=== PATIENT | female | born 1950 | race Caucasian/White ===

== ENCOUNTER 2016-09-28 09:20 | Outpatient (RCR) | payer OTHER ==
--- OUTSIDE RECORDS SUMMARY | 2016-07-14 11:12 | XMS REPORT | Continuity of Care Document ---
Author Author [facility] Organization [facility] Address Unknown Phone Unavailable Care Team Providers Care Hardware Developer Name Role Phone Madi Wan PCP [phone] Source Comments Some departments are not documenting in the electronic medical record. If you do not see the information that you expected, contact Release of Information in the Health Information Management department at [phone] for further assistance in locating additional records.[facility] Active Allergies and Adverse Reactions No Known Allergies Current Medications Prescription Sig. Disp. Refills Start End Date Status Date escitalopram (LEXAPRO) 10 Take 10 mg by mouth at Active mg tablet bedtime daily. simvastatin (ZOCOR) 20 mg Take 20 mg by mouth at Active tablet bedtime daily. cyanocobalamin(+) Take 500 mcg by mouth Active (VITAMIN B-12) 500 mcg daily. tablet ascorbic acid (VITAMIN-C) Take 500 mg by mouth Active 500 mg tablet daily. cholecalciferol (VITAMIN Take 400 Units by mouth Active D-3) 400 unit Tab daily. vitamin E 400 unit Take 400 Units by mouth Active capsule daily. Myzwxhm-Hhprmtsig-Hlfm Take 1 Tab by mouth Active Tab daily. Polysorbate 80-Glycerin Apply 1-2 Drops to both Active (REFRESH DRY EYE THERAPY) eyes daily. 1-1 % Drop polyethylene glycol 3350 Take 17 g by mouth as Active (GLYCOLAX; MIRALAX) 17 Needed. gram/dose powder cyclobenzaprine Take 1 Tab by mouth three 30 Tab 0 02/01/20 Active (FLEXERIL) 5 mg tablet times daily as needed for 16 Muscle Cramps. docusate (COLACE) 100 mg Take 1 Cap by mouth twice 30 Cap 0 02/01/20 Active capsule daily as needed for 16 Constipation. Active Problems Problem Noted Date Pharyngoesophageal dysphagia 12/03/2015 Zenker's diverticulum 12/03/2015 Esophageal dysmotility 12/03/2015 Laryngopharyngeal reflux 12/03/2015 Neuropathy (HCC) 04/09/2014 Pelvic mass 06/06/2013 Fallopian tube cancer, carcinoma (HCC) 05/11/2013 Overview: Formatting of this note may be different from the original. 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 PRIOR THERAPY: Status post exp lap, tahbso, omentectomy, P and PALND on 06/06/2013. Final pathology: + left tube/ovary and + washings. Lab Results Component Value Date CA125 76* 06/26/2013 Lab Results Component Value Date CA125 17 08/21/2013 Completed 6 cycles of carboplatin/taxol chemotherapy at [facility] with Dr. Minerva Diaz on 10/19/2013. Lab Results Component Value Date CA125 13 11/23/2013 11/23/13 CT CHEST W/CONTRAST Component Value Range Impression Value: CT CHEST W/CONTRAST IMPRESSION: CHEST: 1. NO MEDIASTINAL ADENOPATHY. 2. 4 MILLIMETER LEFT LOWER LOBE PULMONARY NODULE LIKELY CALCIFIED GRANULOMA ARE SCAR. CT FOLLOWUP RECOMMENDED. ABDOMEN/PELVIS: 1. INTERVAL HYSTERECTOMY AND OOPHORECTOMY WELL OMENTECTOMY AND LYMPH NODE DISSECTION. 2. NO ABDOMINAL OR PELVIC METASTATIC DISEASE. Lab Results Component Value Date CA125 13 11/23/2013 Last Assessment & Plan: Current Clinical examination, from today 11/23/2013: She is asymptomatic for recurrent disease, her ROS, as described above, does not identify any symptoms that are persistent or concerning for disease. CA125 drawn and normal. She is without evidence of abdominal or pelvic recurrence based on examination in the office today. See above for more particulars. Remainder of examination is unremarkable and reinforces my opinion. Any significant findings are noted above. PLAN: RV in 4 months with CA125 Send disc on last scan. Saw Dr. Gupta in 10/2013 with a RV scheduled in 02/2014. Will see her after. Diverticulitis 05/11/2013 Depression 05/11/2013 Anxiety 05/11/2013 Cataract 05/11/2013 Periodontal disease 05/11/2013 Most Recent Encounters Date Type Specialty Providers Description 06/16/2016 Telephone Otolaryngology Eladio Acharya MD Results 06/10/2016 Surgery Ivy Corrigan MD MANOMETRY ESOPHAGEAL 06/08/2016 Telephone Melody Arteaga RN Pre-Procedure Instructions Social History Tobacco Use Types Packs/Day Years Used Date Never Smoker Smokeless Tobacco: Never Used Alcohol Use Drinks/Week oz/Week Comments No Last Filed Vital Signs Vital Sign Reading Time Taken Blood Pressure 126/83 04/07/2016 12:09 PM CDT Pulse 73 04/07/2016 12:09 PM CDT Temperature 36.7 C (98.1 F) 02/01/2016 8:02 AM CDT Respiratory Rate 18 04/03/2014 1:13 PM CDT Height 1.549 m (5' 1") 04/07/2016 12:09 PM CDT Weight 58.151 kg (128 lb 3.2 oz) 04/07/2016 12:09 PM CDT Body Mass Index 24.24 04/07/2016 12:09 PM CDT Oxygen Saturation 96% 02/01/2016 8:02 AM CDT Plan of Care Health Maintenance Due Date Last Done Comments Hepatitis C Screening 1950 Physical (Comprehensive) 1958 Exam Pertussis Vaccine 1962 Tetanus Vaccine 1968 Cervical Cancer Screening 1972 Breast Cancer Screening 1991 Colorectal Cancer 2001 Screening Shingles Vaccine 2011 Influenza Vaccine 05/21/2016 Procedures from Last 3 Months Procedure Name Priority Date/Time Associated Diagnosis Comments PROCEDURES-SCAN 06/15/2016 Results for this 5:30 PM CDT procedure are in the results section. MANOMETRY ESOPHAGEAL 06/10/2016 Pharyngoesophageal 12:00 PM CDT dysphagia Results from Last 3 Months PROCEDURES-SCAN (06/15/2016 5:30 PM) Narrative Ordered by an unspecified provider.
[~2016-09-28 09:20] MED LIST: CALCIUM SUPPLEMENT; ESCT10T PO; SIMV10TA3 PO; VIT1TABL86 PO; VIT1TABL93 PO; VITAMIN E; VITIMIN C
== END 2016-10-12 | disposition home or self-care (01) ==
LOC: ONC 09:20
PROVIDERS: ATTEND Internal Medicine Hematology & Oncology
DX: Z08 Encounter for follow-up examination after completed treatment for malignant neoplasm (principal); Z85.43 Personal history of malignant neoplasm of ovary; Z85.44 Personal history of malignant neoplasm of other female genital organs; R13.10 Dysphagia, unspecified; Z90.710 Acquired absence of both cervix and uterus; Z92.21 Personal history of antineoplastic chemotherapy; Z45.2 Encounter for adjustment and management of vascular access device
CPT/HCPCS: 36591; 96523; 99213

== ENCOUNTER 2017-01-26 10:50 | Outpatient (RCR) | payer OTHER ==
--- OUTSIDE RECORDS SUMMARY | 2016-11-03 11:11 | XMS REPORT | Continuity of Care Document ---
Author Author [facility] Organization [facility] Address Unknown Phone Unavailable Care Team Providers Care Library Technical Assistant Name Role Phone Madi Wan PCP [phone] Source Comments Some departments are not documenting in the electronic medical record. If you do not see the information that you expected, contact Release of Information in the Health Information Management department at [phone] for further assistance in locating additional records.[facility] Active Allergies and Adverse Reactions No [...] 400 Units by mouth Active capsule daily. Syhgzre-Nsblxhecd-Arig Take 1 Tab by mouth Active Tab [...] Completed 6 cycles of carboplatin/taxol chemotherapy at [facility] with Dr. Minerva Diaz on [...] Anxiety 05/11/2013 Cataract 05/11/2013 Periodontal disease 05/11/2013 Social History Tobacco Use Types Packs/Day Years [...] Exam Pertussis Vaccine 1962 Tetanus Vaccine 1968 Breast Cancer Screening 1991 Colorectal Cancer 2001 Screening Shingles Vaccine 2011 Influenza Vaccine 05/21/2016 Osteoporosis Screening 2016 Prevnar/Pneumovax (#1) 2016 Results from Last 3 Months Not on file
== END 2017-02-01 | disposition home or self-care (01) ==
LOC: ONC 10:50
PROVIDERS: ATTEND Internal Medicine Hematology & Oncology
DX: Z08 Encounter for follow-up examination after completed treatment for malignant neoplasm (principal); Z85.43 Personal history of malignant neoplasm of ovary; Z85.44 Personal history of malignant neoplasm of other female genital organs; R13.10 Dysphagia, unspecified; Z90.710 Acquired absence of both cervix and uterus; Z92.21 Personal history of antineoplastic chemotherapy; Z45.2 Encounter for adjustment and management of vascular access device
CPT/HCPCS: 96523

== ENCOUNTER 2017-03-09 10:12 | Outpatient (RCR) | payer MEDICARE, OTHER ==
[2017-03-09 11:13] LABS: BASOPHILS % (AUTO) 1 % (0-10); EOSINOPHILS # (AUTO) 0.1 10^3/uL (0.0-0.3); EOSINOPHILS % (AUTO) 1 % (0-10); LYMPHOCYTES # (AUTO) 2.3 X 10^3 (1.0-4.0); LYMPHOCYTES % (AUTO) 37 % (12-44); MEAN CORPUSCULAR HEMOGLOBIN 31 PG (25-34); MEAN CORPUSCULAR HGB CONC 34 G/DL (32-36); MEAN CORPUSCULAR VOLUME 92 FL (80-99); MEAN PLATELET VOLUME 9.4 FL (7.4-10.4); MONOCYTES # (AUTO) 0.7 X 10^3 (0.0-1.0); MONOCYTES % (AUTO) 11 % (0-12); NEUTROPHILS # (AUTO) 3.1 X 10^3 (1.8-7.8); NEUTROPHILS % (AUTO) 51 % (42-75); PLATELET COUNT 389 10^3/uL (130-400); RED CELL DISTRIBUTION WIDTH 13.5 % (10.0-14.5); WHITE BLOOD COUNT 6.2 10^3/uL (4.3-11.0)
[2017-03-09 11:28] LABS: ALANINE AMINOTRANSFERASE 8 U/L (0-55); ALBUMIN 4.3 GM/DL (3.2-4.5); ANION GAP 10 MMOL/L (5-14); ASPARTATE AMINO TRANSFERASE 16 U/L (5-34); BILIRUBIN,TOTAL 0.6 MG/DL (0.1-1.0); BLOOD UREA NITROGEN 11 MG/DL (7-18); BUN/CREATININE RATIO 16 (0-20); CALCIUM 9.4 MG/DL (8.5-10.1); CARBON DIOXIDE 25 MMOL/L (21-32); CHLORIDE 106 MMOL/L (98-107); CREATININE SERUM 0.69 MG/DL (0.60-1.30); GFR ESTIMATED > 60; GLUCOSE 87 MG/DL (70-105); HEMOLYSIS 12 (-100-29); ICTERUS 0.8 (-100-1.9); LIPEMIA 4 (-100-49); POTASSIUM 3.8 MMOL/L (3.6-5.0); SODIUM 141 MMOL/L (135-145); TOTAL PROTEIN 7.5 GM/DL (6.4-8.2)
[2017-04-20] MEDS ORDERED: L.AC1CAP6 PO (13:12)
[2017-04-26] MEDS ORDERED: HYDR-3812 PO (11:08)
== END 2017-06-07 | disposition home or self-care (01) ==
LOC: ONC 10:12
PROVIDERS: ATTEND Internal Medicine Hematology & Oncology
DX: Z08 Encounter for follow-up examination after completed treatment for malignant neoplasm (principal); Z85.43 Personal history of malignant neoplasm of ovary; Z85.44 Personal history of malignant neoplasm of other female genital organs; R13.10 Dysphagia, unspecified; Z90.710 Acquired absence of both cervix and uterus; Z92.21 Personal history of antineoplastic chemotherapy
CPT/HCPCS: 36591; 80053; 85025; 86304; 99213

== ENCOUNTER 2017-04-20 05:29 | Outpatient (CLI) | payer MEDICARE ==
[~2017-04-20] VITALS: Ht 154.9 cm; Wt 56.7 kg
[2017-04-20] MEDS ORDERED: L.AC1CAP6 PO (13:12)
== END 2017-04-20 16:23 ==
LOC: PREOP 05:29
PROVIDERS: ATTEND Internal Medicine Gastroenterology
DX: Z01.818 Encounter for other preprocedural examination (principal); Z85.43 Personal history of malignant neoplasm of ovary

== ENCOUNTER 2017-04-26 09:59 | Day surgery (SDC) | payer MEDICARE, OTHER ==
[~2017-04-26] VITALS: Ht 154.9 cm; Wt 56.7 kg
[~2017-04-26 09:59] MED LIST changes: +L.AC1CAP6 PO
[2017-04-26] MEDS ORDERED: LIDOCAINE/EPI 1%-1:200,000 (XYLOCAINE) 30 ML VIAL ONE (10:09)
[2017-04-26] MEDS ORDERED: MIDAZOLAM 2 MG/2 ML (VERSED) VIAL ONE (10:12)
[2017-04-26] MEDS ORDERED: proPOfol 200 MG/20 ML (DIPRIVAN) VIAL IV ONE (10:12)
[2017-04-26] MEDS ORDERED: fentaNYL INJECTION 100 MCG/2 ML AMP ONE (10:12)
[2017-04-26] MEDS ORDERED: LACTATED RINGERS 1,000 ML IV ONE (10:12)
[2017-04-26] MEDS ORDERED: ceFAZolin 2 GM/50 ML NS 50 ML ONE (10:17)
--- NOTE | 2017-04-26 10:17 | Progress Note-Pre Operative ---
Pre-Operative Progress Note H&P Reviewed The H&P was reviewed, patient examined and no changes noted. Time Seen by Provider: 10:12 Date H&P Reviewed: Apr 26, 2017 Time H&P Reviewed: 10:14 Pre-Operative Diagnosis: Venous Insufficiency, Hx of Ovarian Cancer REJI LERNER DO Apr 26, 2017 10:17
[2017-04-26] MEDS ORDERED: KETAMINE HCL 100 MG/ML 5 ML VIAL ONE (10:18)
[2017-04-26] MEDS ORDERED: CATHETER FLUSH 10 ML SYR IV PRN (10:30)
[2017-04-26] MEDS ORDERED: ceFAZolin 2 GM/NS 50 ML IV ONE (10:30)
[2017-04-26 10:35] VITALS: BP 137/83
--- NOTE | 2017-04-26 11:06 | Progress Note-Post Operative ---
Post-Operative Progess Note Surgeon (s)/Cognos Developer (s) Surgeon REJI LERNER DO Cognos Developer: none Pre-Operative Diagnosis Venous Insufficiency, Hx of Ovarian Cancer Post-Operative Diagnosis same Procedure & Operative Findings Date of Procedure 04/26/17 Procedure Performed/Findings Removal of Portacath Anesthesia Type IV sedation Estimated Blood Loss Estimated blood loss (mL): scant Specimens/Packing Specimens Removed port REJI LERNER DO Apr 26, 2017 11:06
[2017-04-26] MEDS ORDERED: HYDR-3812 PO (11:08)
--- NOTE | 2017-04-26 11:10 | Discharge Inst-Surgical ---
Discharge Inst-Surgical Depart Medication/Instructions New, Converted or Re-Newed RX: RX Given to Pt/Family Patient Instructions Follow up Appt: Make appointment for 1 week. [phone] Instructions: No strenuous activity. May shower in 24 hours, no tub bath or soaking. Use incentive spirometer at home as directed. Skin/Wound Care: May remove bandages. You need to leave the Dermabond on it will fall off on its own. Symptoms to Report: Appetite Changes, Extremity Discoloration, Numbness/Tingling, Swelling Increased , Bleeding Excessive, Eyesight Changes, Pain Increased, Urine Color Change, Constipation(Persistent), Fever over 101 degree F, Pain/Pressure in chest, Urinating Difficulty, Cough Up/Vomit Blood, Heart Beat Irreg/Pounding, Pain/ Pressure in jaw, Vaginal Bleeding Increase, Cramps in feet or legs, Lightheadedness, Pain/Pressure in shoulder, Diarrhea(Persistent), Memory Changes Suddenly, Questions/Concerns, Weight gain consecutive days, Dizziness/ Fainting, Nausea/Vomiting, Shortness of Breath, Weight gain over 2 pounds If questions or concerns contact your physician Or seek help at emergency department. Activity Activity Instructions: Avoid Stress to Incision Driving Instructions: No Driving/Refer to Diet Discharge Diet: No Restrictions Diet After 24 Hours: Clear Liquid if Nauseous If Any Problems/Questions/Issu: Contact Your Physician, Go to Emergency Room Skin/Wound Care Infection Signs and Symptoms: Increased Redness, Foul Odor of Wound, Increased Drainage, Skin Itchy or Has a Rash, Increased Swelling, Temperature Above 101 F Bathing Instructions: Shower Stitches/Yuly/Dermabond Dis: Dermabond Ice Pack: Ice On and Off Site REJI LERNER DO Apr 26, 2017 11:10
[2017-04-26] MEDS ORDERED: morphine INJ 10 MG/ML 1ML (SYR OR VIAL) IVP PRN (11:15)
[2017-04-26 11:30] VITALS: BP 113/78
[2017-04-26 12:00] VITALS: BP 114/81
--- NOTE | 2017-04-27 18:08 | OPERATIVE REPORT ---
DATE OF SERVICE: 04/26/2017 PREOPERATIVE DIAGNOSES: 1. Venous insufficiency. 2. History of ovarian cancer. POSTOPERATIVE DIAGNOSES: 1. Venous insufficiency. 2. History of ovarian cancer. PROCEDURE: Port-A-Cath removal. SURGEON: Gaston Siegel DO RESEARCH COMPLIANCE SPECIALIST: None. ANESTHESIA: Local MAC by OSTOMY RN. SPECIMEN: Port-A-Cath, but not sent to pathology. BLOOD LOSS: Scant. FLUIDS: Per anesthesia. POSTOPERATIVE CONDITION: Stable. INDICATION FOR PROCEDURE: The patient is a 66-year-old female who has a Port-A-Cath, had for ovarian cancer, had venous insufficiency. She no longer needs it, wants to remove. FINDINGS: The patient had the Port-A-Cath removed. PROCEDURE NOTE: After informed consent was obtained, the patient was brought to the operating room, placed on table in supine position. She was sterilely prepped and draped in normal fashion. Local lidocaine was used to infiltrate the skin right above and around the port and then, I made an incision with a #15 blade through the previous incision, carried down through the skin into subcutaneous tissue, then deepened down subcutaneous tissue with Bovie electrocautery down to the port, able to grasp the catheter with the hemostat and then started carefully dissecting this, pushing the tract away and then once, I was able to push the tract, then able to grasp the catheter itself and then gently pulled it out, removed the catheter intact and then suture ligated the tract with a 3-0 Vicryl suture. Then, removed the rest of the port with a Bovie electrocautery cutting out the port and the surrounding capsule. Once this was completely removed, this was passed off the table. Copiously irrigated with normal saline. Hemostasis obtained using Bovie electrocautery and elected to close the incision closing the subcutaneous tissue with 3-0 Vicryl, 2 interrupted sutures. Then, closed the skin with 4-0 undyed Monocryl 3 interrupted subcuticular stitches. Area was cleaned and dried, Dermabond placed as well as a pressure dressing. The patient then transferred to recovery room in stable condition. Sponge, instrument and needle count correct at the end of the case. Job ID: [id number] DocumentID: [id number] Dictated Date: 04/26/2017 11:04:47 Caramel Maker Date: 04/27/2017 04:33:14 Dictated By: GASTON SIEGEL DO
== END 2017-04-26 12:05 | disposition home or self-care (01) ==
LOC: SDC 09:59
PROVIDERS: ATTEND Surgery
DX: I87.2 Venous insufficiency (chronic) (peripheral) (principal); Z85.43 Personal history of malignant neoplasm of ovary; Z92.21 Personal history of antineoplastic chemotherapy; E78.5 Hyperlipidemia, unspecified; F32.9 Major depressive disorder, single episode, unspecified; Z79.899 Other long term (current) drug therapy
CPT/HCPCS: 87081

== ENCOUNTER 2017-08-26 09:45 | Outpatient (RCR) | payer MEDICARE, OTHER ==
[~2017-08-26 09:45] MED LIST changes: +ACHD5005 PO
[2017-08-26 10:00] LABS: BASOPHILS # (AUTO) 0.1 10^3/uL (0.0-0.1); BASOPHILS % (AUTO) 1 % (0-10); EOSINOPHILS # (AUTO) 0.2 10^3/uL (0.0-0.3); EOSINOPHILS % (AUTO) 3 % (0-10); HEMATOCRIT 43 % (35-52); HEMOGLOBIN 14.7 G/DL (11.5-16.0); LYMPHOCYTES # (AUTO) 2.1 X 10^3 (1.0-4.0); LYMPHOCYTES % (AUTO) 32 % (12-44); MEAN CORPUSCULAR HEMOGLOBIN 32 PG (25-34); MEAN CORPUSCULAR HGB CONC 34 G/DL (32-36); MEAN CORPUSCULAR VOLUME 93 FL (80-99); MEAN PLATELET VOLUME 9.4 FL (7.4-10.4); MONOCYTES # (AUTO) 0.8 X 10^3 (0.0-1.0); MONOCYTES % (AUTO) 12 % (0-12); NEUTROPHILS # (AUTO) 3.4 X 10^3 (1.8-7.8); NEUTROPHILS % (AUTO) 52 % (42-75); PLATELET COUNT 388 10^3/uL (130-400); RED BLOOD COUNT 4.63 10^6/uL (4.35-5.85); RED CELL DISTRIBUTION WIDTH 13.3 % (10.0-14.5); WHITE BLOOD COUNT 6.5 10^3/uL (4.3-11.0)
[2017-08-26 10:21] LABS: ALANINE AMINOTRANSFERASE 9 U/L (0-55); ALBUMIN 4.5 GM/DL (3.2-4.5); ALKALINE PHOSPHATASE 59 U/L (40-136); BILIRUBIN,TOTAL 0.6 MG/DL (0.1-1.0); BUN/CREATININE RATIO 24; CALCIUM 9.7 MG/DL (8.5-10.1); CARBON DIOXIDE 29 MMOL/L (21-32); CHLORIDE 105 MMOL/L (98-107); CREATININE SERUM 0.76 MG/DL (0.60-1.30); GFR ESTIMATED > 60; GLUCOSE 95 MG/DL (70-105); POTASSIUM 4.7 MMOL/L (3.6-5.0); SODIUM 140 MMOL/L (135-145); TOTAL PROTEIN 7.7 GM/DL (6.4-8.2)
== END 2017-11-24 | disposition home or self-care (01) ==
LOC: ONC 09:45
PROVIDERS: ATTEND Internal Medicine Hematology & Oncology
DX: Z08 Encounter for follow-up examination after completed treatment for malignant neoplasm (principal); Z85.43 Personal history of malignant neoplasm of ovary; Z85.44 Personal history of malignant neoplasm of other female genital organs; R13.10 Dysphagia, unspecified; Z90.710 Acquired absence of both cervix and uterus; Z92.21 Personal history of antineoplastic chemotherapy
CPT/HCPCS: 36415; 80053; 85025; 86304; 99213

== ENCOUNTER → 2018-02-28 | Outpatient (CLI) | payer MEDICARE, OTHER ==
[2018-02-28 10:53] LABS: BASOPHILS % (AUTO) 1 % (0-10); EOSINOPHILS # (AUTO) 0.1 10^3/uL (0.0-0.3); EOSINOPHILS % (AUTO) 2 % (0-10); HEMATOCRIT 42 % (35-52); HEMOGLOBIN 14.4 G/DL (11.5-16.0); LYMPHOCYTES # (AUTO) 2.4 X 10^3 (1.0-4.0); LYMPHOCYTES % (AUTO) 37 % (12-44); MEAN CORPUSCULAR HEMOGLOBIN 33 PG (25-34); MEAN CORPUSCULAR HGB CONC 35 G/DL (32-36); MEAN CORPUSCULAR VOLUME 94 FL (80-99); MEAN PLATELET VOLUME 9.2 FL (7.4-10.4); MONOCYTES # (AUTO) 0.7 X 10^3 (0.0-1.0); MONOCYTES % (AUTO) 11 % (0-12); NEUTROPHILS # (AUTO) 3.3 X 10^3 (1.8-7.8); NEUTROPHILS % (AUTO) 50 % (42-75); PLATELET COUNT 388 10^3/uL (130-400); RED BLOOD COUNT 4.43 10^6/uL (4.35-5.85); RED CELL DISTRIBUTION WIDTH 13.3 % (10.0-14.5); WHITE BLOOD COUNT 6.5 10^3/uL (4.3-11.0)
[2018-02-28 11:13] LABS: ALANINE AMINOTRANSFERASE 9 U/L (0-55); ALBUMIN 4.4 GM/DL (3.2-4.5); ALKALINE PHOSPHATASE 45 U/L (40-136); BILIRUBIN,TOTAL 0.5 MG/DL (0.1-1.0); BUN/CREATININE RATIO 19; CALCIUM 9.3 MG/DL (8.5-10.1); CARBON DIOXIDE 25 MMOL/L (21-32); CHLORIDE 105 MMOL/L (98-107); GFR ESTIMATED > 60; GLUCOSE 89 MG/DL (70-105); SODIUM 140 MMOL/L (135-145); TOTAL PROTEIN 7.3 GM/DL (6.4-8.2)
== END ==
LOC: ONC 10:38
PROVIDERS: ATTEND Internal Medicine Hematology & Oncology
DX: C56.2 Malignant neoplasm of left ovary (principal)
CPT/HCPCS: 36415; 80053; 85025; 86304; 99213

== ENCOUNTER 2018-08-29 10:51 | Outpatient (RCR) | payer MEDICARE, OTHER ==
[2018-08-29 11:02] LABS: BASOPHILS % (AUTO) 1 % (0-10); EOSINOPHILS # (AUTO) 0.2 10^3/uL (0.0-0.3); EOSINOPHILS % (AUTO) 3 % (0-10); HEMATOCRIT 41 % (35-52); LYMPHOCYTES # (AUTO) 1.9 X 10^3 (1.0-4.0); LYMPHOCYTES % (AUTO) 31 % (12-44); MEAN CORPUSCULAR HEMOGLOBIN 32 PG (25-34); MEAN CORPUSCULAR HGB CONC 34 G/DL (32-36); MEAN CORPUSCULAR VOLUME 93 FL (80-99); MEAN PLATELET VOLUME 9.2 FL (7.4-10.4); MONOCYTES # (AUTO) 0.8 X 10^3 (0.0-1.0); MONOCYTES % (AUTO) 13 % (0-12); NEUTROPHILS # (AUTO) 3.4 X 10^3 (1.8-7.8); NEUTROPHILS % (AUTO) 53 % (42-75); PLATELET COUNT 372 10^3/uL (130-400); RED CELL DISTRIBUTION WIDTH 13.2 % (10.0-14.5); WHITE BLOOD COUNT 6.3 10^3/uL (4.3-11.0)
[2018-08-29 11:28] LABS: ALANINE AMINOTRANSFERASE 8 U/L (0-55); ALBUMIN 4.4 GM/DL (3.2-4.5); ALKALINE PHOSPHATASE 45 U/L (40-136); BILIRUBIN,TOTAL 0.5 MG/DL (0.1-1.0); BUN/CREATININE RATIO 16; CALCIUM 9.3 MG/DL (8.5-10.1); CARBON DIOXIDE 25 MMOL/L (21-32); CHLORIDE 106 MMOL/L (98-107); CREATININE SERUM 0.73 MG/DL (0.60-1.30); GFR ESTIMATED > 60; GLUCOSE 87 MG/DL (70-105); POTASSIUM 3.8 MMOL/L (3.6-5.0); SODIUM 141 MMOL/L (135-145); TOTAL PROTEIN 7.2 GM/DL (6.4-8.2)
== END 2018-11-27 | disposition home or self-care (01) ==
LOC: ONC 10:51
PROVIDERS: ATTEND Internal Medicine Hematology & Oncology
DX: C56.2 Malignant neoplasm of left ovary (principal); Z90.710 Acquired absence of both cervix and uterus; Z92.21 Personal history of antineoplastic chemotherapy
CPT/HCPCS: 36415; 80053; 85025; 86304; 99213

== ENCOUNTER 2019-02-27 10:12 | Outpatient (RCR) | payer MEDICARE, OTHER ==
[2019-02-27 10:34] LABS: BASOPHILS % (AUTO) 1 % (0-10); EOSINOPHILS # (AUTO) 0.1 10^3/uL (0.0-0.3); EOSINOPHILS % (AUTO) 3 % (0-10); HEMATOCRIT 43 % (35-52); HEMOGLOBIN 14.6 G/DL (11.5-16.0); LYMPHOCYTES % (AUTO) 36 % (12-44); MEAN CORPUSCULAR HEMOGLOBIN 31 PG (25-34); MEAN CORPUSCULAR HGB CONC 34 G/DL (32-36); MEAN CORPUSCULAR VOLUME 93 FL (80-99); MEAN PLATELET VOLUME 9.2 FL (7.4-10.4); MONOCYTES # (AUTO) 0.5 X 10^3 (0.0-1.0); MONOCYTES % (AUTO) 10 % (0-12); NEUTROPHILS # (AUTO) 2.8 X 10^3 (1.8-7.8); NEUTROPHILS % (AUTO) 51 % (42-75); PLATELET COUNT 399 10^3/uL (130-400); RED CELL DISTRIBUTION WIDTH 13.7 % (10.0-14.5); WHITE BLOOD COUNT 5.5 10^3/uL (4.3-11.0)
[2019-02-27 10:58] LABS: ALANINE AMINOTRANSFERASE 10 U/L (0-55); ALBUMIN 4.5 GM/DL (3.2-4.5); ALKALINE PHOSPHATASE 39 U/L (40-136); BILIRUBIN,TOTAL 0.5 MG/DL (0.1-1.0); BUN/CREATININE RATIO 15; CALCIUM 10.2 MG/DL (8.5-10.1); CARBON DIOXIDE 28 MMOL/L (21-32); CHLORIDE 103 MMOL/L (98-107); CREATININE SERUM 0.73 MG/DL (0.60-1.30); GFR ESTIMATED > 60; GLUCOSE 75 MG/DL (70-105); POTASSIUM 4.1 MMOL/L (3.6-5.0); SODIUM 140 MMOL/L (135-145); TOTAL PROTEIN 7.5 GM/DL (6.4-8.2)
== END 2019-05-28 | disposition home or self-care (01) ==
LOC: ONC 10:12
PROVIDERS: ATTEND Internal Medicine Hematology & Oncology
DX: C56.2 Malignant neoplasm of left ovary (principal); Z90.710 Acquired absence of both cervix and uterus; Z92.21 Personal history of antineoplastic chemotherapy
CPT/HCPCS: 36415; 80053; 85025; 86304; 99213

== ENCOUNTER → 2020-03-01 | Outpatient (CLI) | payer MEDICARE, OTHER ==
[2020-03-01 14:18] LABS: BASOPHILS % (AUTO) 1 % (0-10); EOSINOPHILS # (AUTO) 0.1 10^3/uL (0.0-0.3); EOSINOPHILS % (AUTO) 1 % (0-10); HEMATOCRIT 41 % (35-52); HEMOGLOBIN 13.9 G/DL (11.5-16.0); LYMPHOCYTES # (AUTO) 2.1 X 10^3 (1.0-4.0); LYMPHOCYTES % (AUTO) 28 % (12-44); MEAN CORPUSCULAR HEMOGLOBIN 32 PG (25-34); MEAN CORPUSCULAR HGB CONC 34 G/DL (32-36); MEAN CORPUSCULAR VOLUME 94 FL (80-99); MEAN PLATELET VOLUME 9.3 FL (7.4-10.4); MONOCYTES # (AUTO) 0.8 X 10^3 (0.0-1.0); MONOCYTES % (AUTO) 11 % (0-12); NEUTROPHILS # (AUTO) 4.4 X 10^3 (1.8-7.8); NEUTROPHILS % (AUTO) 60 % (42-75); PLATELET COUNT 385 10^3/uL (130-400); RED CELL DISTRIBUTION WIDTH 13.3 % (10.0-14.5); WHITE BLOOD COUNT 7.3 10^3/uL (4.3-11.0)
[2020-03-01 14:39] LABS: ALANINE AMINOTRANSFERASE 7 U/L (0-55); ALBUMIN 4.1 GM/DL (3.2-4.5); ALKALINE PHOSPHATASE 41 U/L (40-136); BILIRUBIN,TOTAL 0.4 MG/DL (0.1-1.0); BUN/CREATININE RATIO 18; CALCIUM 9.4 MG/DL (8.5-10.1); CARBON DIOXIDE 25 MMOL/L (21-32); CHLORIDE 105 MMOL/L (98-107); CREATININE SERUM 0.83 MG/DL (0.60-1.30); GFR ESTIMATED > 60; GLUCOSE 114 MG/DL (70-105); POTASSIUM 3.7 MMOL/L (3.6-5.0); SODIUM 141 MMOL/L (135-145)
== END ==
LOC: EDSTATUS 05-29 10:14 → ONC 13:51
PROVIDERS: ATTEND Internal Medicine Hematology & Oncology
DX: C56.2 Malignant neoplasm of left ovary (principal); Z90.89 Acquired absence of other organs; Z92.21 Personal history of antineoplastic chemotherapy
CPT/HCPCS: 80053; 85025; 86304; G0463; 99213

== ENCOUNTER → 2021-04-22 | Outpatient (CLI) | payer MEDICARE, OTHER ==
[2021-04-22 13:10] LABS: BASOPHILS % (AUTO) 1 % (0-10); EOSINOPHILS % (AUTO) 0 % (0-10); HEMATOCRIT 44 % (35-52); HEMOGLOBIN 14.6 g/dL (11.5-16.0); LYMPHOCYTES % (AUTO) 28 % (12-44); MEAN CORPUSCULAR HEMOGLOBIN 32 pg (25-34); MEAN CORPUSCULAR HGB CONC 34 g/dL (32-36); MEAN CORPUSCULAR VOLUME 95 fL (80-99); MEAN PLATELET VOLUME 9.1 fL (9.0-12.2); MONOCYTES # (AUTO) 0.7 10^3/uL (0.0-1.0); MONOCYTES % (AUTO) 9 % (0-12); NEUTROPHILS # (AUTO) 4.4 10^3/uL (1.8-7.8); NEUTROPHILS % (AUTO) 62 % (42-75); PLATELET COUNT 403 10^3/uL (130-400); WHITE BLOOD COUNT 7.1 10^3/uL (4.3-11.0)
[2021-04-22 13:26] LABS: ALBUMIN 4.2 GM/DL (3.2-4.5); BILIRUBIN,TOTAL 0.5 MG/DL (0.1-1.0); CALCIUM 9.2 MG/DL (8.5-10.1); CREATININE SERUM 0.81 MG/DL (0.60-1.30); POTASSIUM 3.4 MMOL/L (3.6-5.0); TOTAL PROTEIN 7.4 GM/DL (6.4-8.2)
== END ==
LOC: ONC 13:02
PROVIDERS: ATTEND Internal Medicine Hematology & Oncology
DX: C56.2 Malignant neoplasm of left ovary (principal); E78.00 Pure hypercholesterolemia, unspecified; Z92.21 Personal history of antineoplastic chemotherapy
CPT/HCPCS: 80053; 85025; 86304; G0463; 99213